=== PATIENT | female | born 1955 | race Caucasian/White ===

== ENCOUNTER 2017-07-21 17:45 | Emergency (ER) | payer OTHER ==
[~2017-07-21] VITALS: Ht 152.4 cm; Wt 90.7 kg
[~2017-07-21 17:45] MED LIST: FURO-151 PO; LACT10SO7 PO; LEVO125T PO; LEVO125T8 PO; MULT-585 PO; OMEP20CA10 PO; SPIR50TA3 PO; THIA100T68 PO
[2017-07-21] MEDS ORDERED: LEVO100T10 PO (18:16)
[2017-07-21] MEDS ORDERED: LISI10TA5 PO (18:16)
[2017-07-21] MEDS ORDERED: HYDROMORPHONE 1 MG/1 ML DISP.SYRIN IM ONE (18:45)
[2017-07-21] MEDS ORDERED: ONDANSETRON 4 MG/2 ML VIAL IM ONE (18:45)
[2017-07-21] MEDS ORDERED: ONDANSETRON 4 MG/2 ML VIAL ONE (19:06)
[2017-07-21] MEDS ORDERED: HYDROMORPHONE 2 MG/1 ML DISP.SYRIN ONE (19:06)
--- NOTE | 2017-07-21 20:12 | NUR ---
Patient discharged to home in stable conditon. Written and verbal after care instructions given. Patient verbalizes understanding of instructions.
== END 2017-07-21 20:13 | disposition home or self-care (01) ==
LOC: ER 17:46
DX: S32.009A Unspecified fracture of unspecified lumbar vertebra, initial encounter for closed fracture (principal); Z88.0 Allergy status to penicillin; I25.10 Atherosclerotic heart disease of native coronary artery without angina pectoris; I25.2 Old myocardial infarction; M19.90 Unspecified osteoarthritis, unspecified site; X58.XXXA Exposure to other specified factors, initial encounter; Y93.89 Activity, other specified; Y92.89 Other specified places as the place of occurrence of the external cause; Y99.8 Other external cause status
CPT/HCPCS: 72100; 72202; 96372 ×2; 99284; A4663; J1170; J2405

== ENCOUNTER 2017-08-20 12:25 | Emergency (ER) | payer OTHER ==
[~2017-08-20] VITALS: Ht 160 cm; Wt 72.6 kg
[~2017-08-20 12:25] MED LIST changes: -LACT10SO7 PO; +LEVO100T10 PO; -LEVO125T PO; -LEVO125T8 PO; +LISI10TA5 PO; -MULT-585 PO
[2017-08-20] MEDS ORDERED: PROMETHAZINE HCL 25 MG/1 ML VIAL IM ONE (12:45)
[2017-08-20] MEDS ORDERED: HYDROMORPHONE 1 MG/1 ML DISP.SYRIN IM ONE (12:45)
--- NOTE | 2017-08-20 13:07 | NUR ---
Patient discharged to home in stable conditon. Written and verbal after care instructions given. Patient verbalizes understanding of instructions.
[2017-08-20 13:08] VITALS: BP 122/83
[2017-08-20] MEDS ORDERED: HYDROMORPHONE 2 MG/1 ML DISP.SYRIN ONE (13:08)
[2017-08-20] MEDS ORDERED: PROMETHAZINE HCL 25 MG/1 ML VIAL ONE (13:08)
== END 2017-08-20 13:09 | disposition home or self-care (01) ==
LOC: ER 12:29
DX: M54.5 Low back pain (principal); I25.10 Atherosclerotic heart disease of native coronary artery without angina pectoris; B19.20 Unspecified viral hepatitis C without hepatic coma; Z90.49 Acquired absence of other specified parts of digestive tract; M19.90 Unspecified osteoarthritis, unspecified site; I25.2 Old myocardial infarction; Z88.0 Allergy status to penicillin
CPT/HCPCS: A4663; J1170; J2550

== ENCOUNTER 2017-09-23 15:06 | Emergency (ER) | payer OTHER ==
[~2017-09-23] VITALS: Ht 154.9 cm; Wt 74.8 kg
[2017-09-23] MEDS ORDERED: LISI10TA5 PO (15:35)
[2017-09-23] MEDS ORDERED: [UNRECOGNIZED DRUG - CODE] PO (15:35)
[2017-09-23] MEDS ORDERED: LEVO100T10 PO (15:35)
[2017-09-23] MEDS ORDERED: SPIR50TA3 PO (15:35)
[2017-09-23] MEDS ORDERED: FURO40TA5 PO (15:35)
[2017-09-23] MEDS ORDERED: OMEPRAZOLE PO (15:35)
--- NOTE | 2017-09-23 15:47 | NUR ---
PT.WAS SEEN BY .
--- NOTE | 2017-09-23 17:20 | NUR ---
Pt .back pain went from lewel 3 to 7-8 on scale [0-10],med.given.
[2017-09-23] MEDS ORDERED: diphenhydrAMINE 50 MG/1 ML VIAL ONE (17:41)
[2017-09-23] MEDS ORDERED: HYDROMORPHONE 2 MG/1 ML DISP.SYRIN ONE (17:41)
[2017-09-23] MEDS: HYDROMORPHONE 1 MG/1 ML DISP.SYRIN IM ONE (17:47)
[2017-09-23] MEDS: diphenhydrAMINE 50 MG/1 ML VIAL IM ONE (17:48)
--- NOTE | 2017-09-23 18:28 | NUR ---
Pt.denies any pain.
[2017-09-23 18:30] VITALS: BP 128/74
--- NOTE | 2017-09-23 18:40 | NUR ---
Pt.develop nause,vomited x1 small amount,Reglan 10 mg im given.
[2017-09-23] MEDS ORDERED: METOCLOPRAMIDE HCL 10 MG/2 ML VIAL ONE (18:43)
[2017-09-23] MEDS: METOCLOPRAMIDE HCL 10 MG/2 ML VIAL IM ONE (18:45)
--- NOTE | 2017-09-23 19:09 | NUR ---
Pt.staited florencio nausea gone,family at bedside,d/c instruction given.
== END 2017-09-23 19:15 | disposition home or self-care (01) ==
LOC: ER 15:08
DX: G89.29 Other chronic pain (principal); M54.5 Low back pain; I10 Essential (primary) hypertension; I25.10 Atherosclerotic heart disease of native coronary artery without angina pectoris; I25.2 Old myocardial infarction; Z88.0 Allergy status to penicillin; Z91.041 Radiographic dye allergy status; Z79.1 Long term (current) use of non-steroidal anti-inflammatories (NSAID)
CPT/HCPCS: A4663; J1170; J1200; J2765

== ENCOUNTER 2017-10-20 15:21 | Inpatient (IN) | payer OTHER ==
[~2017-10-20] VITALS: Ht 154.9 cm; Wt 73.1 kg
[~2017-10-20 15:21] MED LIST changes: +FURO40TA5 PO; +OMEPRAZOLE PO; +[UNRECOGNIZED DRUG - CODE] PO
[2017-10-20] MEDS ORDERED: IPRATROPIUM BROMIDE 0.5 MG/2.5 ML NEBU NEB ONE (15:45)
[2017-10-20] MEDS ORDERED: methylPREDNISolone SOD SUCC 125 MG/2 ML VIAL IV ONE (15:45)
[2017-10-20] MEDS ORDERED: IV NORMAL SALINE 1000 ML BAG IV ONE ×2 (15:45→17:00)
[2017-10-20] MEDS ORDERED: ALBUTEROL SULFATE 2.5 MG/3 ML NEBU NEB ONE (15:45)
[2017-10-20] MEDS ORDERED: ALBUTEROL SULFATE 2.5 MG/ 0.5 ML NEBU ONE (15:48)
[2017-10-20] MEDS ORDERED: IPRATROPIUM BROMIDE 0.5 MG/2.5 ML NEBU ONE (15:48)
[2017-10-20] MEDS ORDERED: methylPREDNISolone SOD SUCC 125 MG/2 ML VIAL ONE (15:51)
[2017-10-20 16:14] LABS: BASOPHILS % (AUTO) 0.6 % (0.0-2.0); EOSINOPHILS % (AUTO) 0.5 % (0.0-7.0); HEMATOCRIT 38.2 % (31.2-41.9); HEMOGLOBIN 13.2 g/dL (10.9-14.3); LYMPHOCYTES # (AUTO) 1.1 K/uL (20.0-40.0); LYMPHOCYTES % (AUTO) 14.7 % (20.5-51.5); MEAN CORPUSCULAR HEMOGLOBIN 32.8 uug (24.7-32.8); MEAN CORPUSCULAR HGB CONC 35 g/dL (32.3-35.6); MONOCYTES # (AUTO) 0.7 K/uL (2.0-10.0); MONOCYTES % (AUTO) 9.4 % (0.0-11.0); NEUTROPHILS # (AUTO) 5.8 K/uL (1.8-8.9); NEUTROPHILS % (AUTO) 74.8 % (38.5-71.5); PLATELET COUNT (AUTO) 164 K/uL (179-408); RED BLOOD CELL COUNT(AUTO) 4.02 MIL/uL (3.63-4.92); WHITE BLOOD COUNT (AUTO) 7.8 K/uL (3.8-11.8)
[2017-10-20 16:14] LABS: ABG BASE EXCESS 0.9 mmol/L; ABG HCO3 23.9 mmol/L; ABG PCO2 33.5 mmHg (35.0-45.0); ABG PH 7.472 (7.350-7.450); ABG PO2 150.3 mmHg (75.0-100.0); ABG SITE LEFT BRACHIAL; ABG TOTAL HEMOGLOBIN 13.3 G/dL (12.0-16.0); COHb 1.2 % (0.5-1.5); MetHb 0.2 % (0.0-1.5); VENT MODE Nasal Cannula
[2017-10-20 16:24] LABS: CREATININE 1.8 mg/dL (0.6-1.3)
[2017-10-20 16:36] LABS: POTASSIUM 2.8 mmol/L (3.5-5.1)
[2017-10-20 16:42] LABS: BILIRUBIN,DIRECT 0.3 mg/dL (0.0-0.2); BILIRUBIN,TOTAL 0.8 mg/dL (0.1-1.0); TOTAL PROTEIN, SERUM 6.5 g/dL (6.4-8.2)
[2017-10-20] MEDS ORDERED: ENOXAPARIN SODIUM 80 MG/0.8 ML DISP.SYRIN SQ ONE (17:00)
[2017-10-20] MEDS ORDERED: ENOXAPARIN SODIUM 40 MG/0.4 ML DISP.SYRIN SQ ONE (17:11)
[2017-10-20] MEDS ORDERED: ENOXAPARIN SODIUM 30 MG/0.3 ML DISP.SYRIN ONE (17:11)
[2017-10-20 20:32] VITALS: BP 133/67
[2017-10-20] MEDS ORDERED: POTASSIUM CHLORIDE 10 MEQ in IV D5/ 0.9% NACL 1,000 ML IV PRN (22:30)
[2017-10-20] MEDS ORDERED: LEVOFLOXACIN 500 MG/D5W 500 MG in PREMIXED 1 EACH IV SCH (22:30)
[2017-10-20] MEDS ORDERED: TEMAZEPAM 15 MG CAPSULE PO PRN (22:30)
[2017-10-20] MEDS: HYDROCODONE/APAP 5-325MG TABLET PO PRN (23:17)
[2017-10-21] VITALS: BP 137/78
[2017-10-21] MEDS ORDERED: LEVOFLOXACIN 500 MG/D5W 100 ML ONE (00:19)
[2017-10-21] MEDS: POTASSIUM CHLORIDE 20 MEQ in IV D5/ 0.9% NACL 1,000 ML IV PRN ×2 (00:24→12:11)
[2017-10-21] MEDS: IPRATROPIUM BROMIDE 0.5 MG/2.5 ML NEBU NEB PRN ×2 (02:13→17:08)
[2017-10-21] MEDS: ALBUTEROL SULFATE 2.5 MG/3 ML NEBU NEB PRN ×2 (02:13→17:08)
[2017-10-21 04:00] VITALS: BP 113/55
[2017-10-21] MEDS: HYDROCODONE/APAP 5-325MG TABLET PO PRN ×2 (04:55→11:21)
[2017-10-21 06:28] LABS: BASOPHILS % (AUTO) 0.1 % (0.0-2.0); LYMPHOCYTES # (AUTO) 0.5 K/uL (20.0-40.0); LYMPHOCYTES % (AUTO) 17.3 % (20.5-51.5); MEAN CORPUSCULAR HEMOGLOBIN 32.9 uug (24.7-32.8); MEAN CORPUSCULAR HGB CONC 35 g/dL (32.3-35.6); MEAN CORPUSCULAR VOLUME 94.7 fL (75.5-95.3); MONOCYTES # (AUTO) 0.1 K/uL (2.0-10.0); MONOCYTES % (AUTO) 3.4 % (0.0-11.0); NEUTROPHILS # (AUTO) 2.3 K/uL (1.8-8.9); NEUTROPHILS % (AUTO) 79.2 % (38.5-71.5); PLATELET COUNT (AUTO) 124 K/uL (179-408); RED BLOOD CELL COUNT(AUTO) 3.38 MIL/uL (3.63-4.92)
[2017-10-21 06:51] LABS: HEMOGLOBIN 11.1 g/dL (10.9-14.3); WHITE BLOOD COUNT (AUTO) 2.9 K/uL (3.8-11.8)
[2017-10-21 06:58] LABS: CREATININE 1.2 mg/dL (0.6-1.3); MAGNESIUM 1.3 mg/dL (1.8-2.4); PHOSPHOROUS 2.2 mg/dL (2.5-4.9)
[2017-10-21 07:12] LABS: THYROID STIMULATING HORMONE 0.061 mIU/mL (0.358-3.740)
[2017-10-21] MEDS ORDERED: MISCELLANEOUS MED XX PRN ×2 (07:15)
[2017-10-21] MEDS: LEVOTHYROXINE SODIUM 100 MCG TABLET PO SCH (07:59)
[2017-10-21] MEDS: PANTOPRAZOLE SODIUM 40 MG TABLET.DR PO SCH (07:59)
[2017-10-21] MEDS: THIAMINE HCL 100 MG TABLET PO SCH (08:03)
[2017-10-21] MEDS: FUROSEMIDE 40 MG TABLET PO SCH (08:03)
[2017-10-21] MEDS: methylPREDNISolone SOD SUCC 125 MG/2 ML VIAL IV SCH ×2 (08:04→20:29)
[2017-10-21 08:17] LABS: BAND % (MANUAL) 3 % (0-10); LYMPHOCYTES % (MANUAL) 20 % (20-40); MONOCYTES % (MANUAL) 3 % (2-10); NEUTROPHILS % (MANUAL) 74 % (42-75)
[2017-10-21] MEDS: SPIRONOLACTONE 50 MG TABLET PO SCH (09:07)
[2017-10-21] MEDS: LISINOPRIL 10 MG TABLET PO SCH (09:07)
[2017-10-21 11:28] VITALS: BP 127/59
[2017-10-21] MEDS ORDERED: HYDR-3980 PO (13:25)
[2017-10-21] MEDS ORDERED: TRAM50TA2 PO (13:27)
[2017-10-21] MEDS ORDERED: CHOL10002 PO (13:28)
[2017-10-21] MEDS: MAGNESIUM SULFATE/D5W 100 ML IV SCH ×2 (13:33→14:52)
[2017-10-21 15:28] VITALS: BP 120/61
[2017-10-21] MEDS: POTASSIUM PHOSPHATE MM 5 MMOL in IV DEXTROSE 5% 100 ML IV SCH ×4 (15:55→22:24)
[2017-10-21] MEDS ORDERED: ALPRAZOLAM 0.25 MG TABLET PO PRN (19:15)
[2017-10-21] MEDS ORDERED: ZOLPIDEM 5 MG TABLET PO PRN (19:15)
[2017-10-21 20:00] VITALS: BP 123/63
[2017-10-21] MEDS: ALPRAZOLAM 0.25 MG TABLET PO PRN (21:01)
[2017-10-21] MEDS: LEVOFLOXACIN 250MG /D5W 50 ML IV SCH (23:31)
[2017-10-22] VITALS: BP 145/79
[2017-10-22] MEDS: IPRATROPIUM BROMIDE 0.5 MG/2.5 ML NEBU NEB PRN ×5 (02:13→19:27)
[2017-10-22] MEDS: ALBUTEROL SULFATE 2.5 MG/3 ML NEBU NEB PRN ×5 (02:13→19:27)
[2017-10-22] MEDS: ALPRAZOLAM 0.25 MG TABLET PO PRN ×4 (02:49→21:32)
[2017-10-22 04:35] VITALS: BP 138/77
[2017-10-22] MEDS: PANTOPRAZOLE SODIUM 40 MG TABLET.DR PO SCH (06:22)
[2017-10-22] MEDS: LEVOTHYROXINE SODIUM 100 MCG TABLET PO SCH (06:22)
[2017-10-22 07:11] LABS: BASOPHILS % (AUTO) 0.1 % (0.0-2.0); HEMATOCRIT 32.3 % (31.2-41.9); HEMOGLOBIN 11.3 g/dL (10.9-14.3); LYMPHOCYTES # (AUTO) 0.5 K/uL (20.0-40.0); LYMPHOCYTES % (AUTO) 6.1 % (20.5-51.5); MEAN CORPUSCULAR HEMOGLOBIN 33.3 uug (24.7-32.8); MEAN CORPUSCULAR HGB CONC 35 g/dL (32.3-35.6); MEAN CORPUSCULAR VOLUME 95.3 fL (75.5-95.3); MONOCYTES # (AUTO) 0.3 K/uL (2.0-10.0); MONOCYTES % (AUTO) 3.8 % (0.0-11.0); NEUTROPHILS # (AUTO) 7.5 K/uL (1.8-8.9); PLATELET COUNT (AUTO) 139 K/uL (179-408); RED BLOOD CELL COUNT(AUTO) 3.39 MIL/uL (3.63-4.92)
[2017-10-22 07:26] LABS: WHITE BLOOD COUNT (AUTO) 8.3 K/uL (3.8-11.8)
[2017-10-22 07:40] LABS: BILIRUBIN,TOTAL 0.5 mg/dL (0.2-1.0); CREATININE 0.7 mg/dL (0.6-1.3); MAGNESIUM 1.7 mg/dL (1.8-2.4); PHOSPHOROUS 2.7 mg/dL (2.5-4.9); POTASSIUM 3.4 mmol/L (3.5-5.1); TOTAL PROTEIN, SERUM 5.3 g/dL (6.4-8.2)
[2017-10-22] MEDS: THIAMINE HCL 100 MG TABLET PO SCH (08:40)
[2017-10-22] MEDS: SPIRONOLACTONE 50 MG TABLET PO SCH (08:40)
[2017-10-22] MEDS: FUROSEMIDE 40 MG TABLET PO SCH (08:40)
[2017-10-22] MEDS: methylPREDNISolone SOD SUCC 125 MG/2 ML VIAL IV SCH (08:40)
[2017-10-22] MEDS: CHOLECALCIFEROL 1,000 UNIT TABLET PO SCH (08:40)
[2017-10-22] MEDS: LISINOPRIL 10 MG TABLET PO SCH (08:48)
[2017-10-22 11:06] VITALS: BP 135/71
[2017-10-22] MEDS ORDERED: MAGNESIUM OXIDE 400 MG TABLET PO ONE (14:45)
[2017-10-22 15:05] VITALS: BP 128/64
[2017-10-22] MEDS: POTASSIUM CHLORIDE 20 MEQ in IV D5/ 0.9% NACL 1,000 ML IV PRN (15:08)
[2017-10-22 20:00] VITALS: BP 122/69
[2017-10-22] MEDS ORDERED: methylPREDNISolone SOD SUCC 125 MG/2 ML VIAL IV SCH (21:00)
[2017-10-22] MEDS: methylPREDNISolone SOD SUCC 40 MG/ML VIAL IV SCH (21:32)
[2017-10-22] MEDS: LEVOFLOXACIN 250MG /D5W 50 ML IV SCH (23:16)
[2017-10-23] VITALS: BP 126/90
[2017-10-23] MEDS: ALPRAZOLAM 0.25 MG TABLET PO PRN ×3 (02:49→21:03)
[2017-10-23] MEDS: POTASSIUM CHLORIDE 20 MEQ in IV D5/ 0.9% NACL 1,000 ML IV PRN ×2 (03:14→18:57)
[2017-10-23 04:00] VITALS: BP 130/76
[2017-10-23] MEDS: LEVOTHYROXINE SODIUM 100 MCG TABLET PO SCH (06:21)
[2017-10-23] MEDS: PANTOPRAZOLE SODIUM 40 MG TABLET.DR PO SCH (06:21)
[2017-10-23 06:36] LABS: BASOPHILS % (AUTO) 0.1 % (0.0-2.0); HEMATOCRIT 31.3 % (31.2-41.9); LYMPHOCYTES # (AUTO) 0.5 K/uL (20.0-40.0); MEAN CORPUSCULAR HGB CONC 35 g/dL (32.3-35.6); MEAN CORPUSCULAR VOLUME 94.5 fL (75.5-95.3); MONOCYTES # (AUTO) 0.2 K/uL (2.0-10.0); MONOCYTES % (AUTO) 3.7 % (0.0-11.0); NEUTROPHILS # (AUTO) 5.8 K/uL (1.8-8.9); NEUTROPHILS % (AUTO) 88.2 % (38.5-71.5); PLATELET COUNT (AUTO) 145 K/uL (179-408); RED BLOOD CELL COUNT(AUTO) 3.32 MIL/uL (3.63-4.92); WHITE BLOOD COUNT (AUTO) 6.6 K/uL (3.8-11.8)
[2017-10-23 06:51] LABS: BILIRUBIN,TOTAL 0.5 mg/dL (0.2-1.0); CREATININE 0.7 mg/dL (0.6-1.3); MAGNESIUM 1.6 mg/dL (1.8-2.4); PHOSPHOROUS 2.5 mg/dL (2.5-4.9); POTASSIUM 4.1 mmol/L (3.5-5.1); TOTAL PROTEIN, SERUM 5.2 g/dL (6.4-8.2)
[2017-10-23] MEDS: IPRATROPIUM BROMIDE 0.5 MG/2.5 ML NEBU NEB PRN ×3 (08:28→14:31)
[2017-10-23] MEDS: ALBUTEROL SULFATE 2.5 MG/3 ML NEBU NEB PRN (08:28)
[2017-10-23] MEDS: FUROSEMIDE 40 MG TABLET PO SCH (08:49)
[2017-10-23] MEDS: CHOLECALCIFEROL 1,000 UNIT TABLET PO SCH (08:49)
[2017-10-23] MEDS: THIAMINE HCL 100 MG TABLET PO SCH (08:49)
[2017-10-23] MEDS: SPIRONOLACTONE 50 MG TABLET PO SCH (08:49)
[2017-10-23] MEDS: LISINOPRIL 10 MG TABLET PO SCH (08:50)
[2017-10-23] MEDS: methylPREDNISolone SOD SUCC 40 MG/ML VIAL IV SCH ×2 (08:50→21:03)
[2017-10-23] MEDS: ALBUTEROL SULFATE 2.5 MG/3 ML NEBU NEB SCH ×4 (11:15→23:21)
[2017-10-23 12:04] VITALS: BP 101/62
[2017-10-23] MEDS: MAGNESIUM SULFATE/D5W 100 ML IV SCH ×2 (13:03→14:14)
[2017-10-23 15:10] VITALS: BP 105/53
[2017-10-23] MEDS: HYDROCODONE/APAP 5-325MG TABLET PO PRN (17:10)
[2017-10-23 20:00] VITALS: BP 144/87
[2017-10-24] MEDS: LEVOFLOXACIN 250MG /D5W 50 ML IV SCH (00:17)
[2017-10-24] MEDS: ALBUTEROL SULFATE 2.5 MG/3 ML NEBU NEB SCH ×6 (02:53→22:57)
[2017-10-24] MEDS: HYDROCODONE/APAP 5-325MG TABLET PO PRN ×3 (04:27→20:05)
[2017-10-24 05:13] VITALS: BP 137/62
[2017-10-24] MEDS: IPRATROPIUM BROMIDE 0.5 MG/2.5 ML NEBU NEB PRN ×3 (05:22→19:14)
[2017-10-24] MEDS: ALBUTEROL SULFATE 2.5 MG/3 ML NEBU NEB PRN (05:22)
[2017-10-24] MEDS: LEVOTHYROXINE SODIUM 100 MCG TABLET PO SCH (06:04)
[2017-10-24] MEDS: PANTOPRAZOLE SODIUM 40 MG TABLET.DR PO SCH (06:04)
[2017-10-24 06:33] LABS: CREATININE 0.7 mg/dL (0.6-1.3); MAGNESIUM 1.8 mg/dL (1.8-2.4); POTASSIUM 4.6 mmol/L (3.5-5.1)
[2017-10-24] MEDS: THIAMINE HCL 100 MG TABLET PO SCH (08:45)
[2017-10-24] MEDS: FUROSEMIDE 40 MG TABLET PO SCH (08:45)
[2017-10-24] MEDS: CHOLECALCIFEROL 1,000 UNIT TABLET PO SCH (08:45)
[2017-10-24] MEDS: SPIRONOLACTONE 50 MG TABLET PO SCH (08:45)
[2017-10-24] MEDS: methylPREDNISolone SOD SUCC 40 MG/ML VIAL IV SCH ×2 (08:46→20:01)
[2017-10-24] MEDS: LISINOPRIL 10 MG TABLET PO SCH (08:49)
[2017-10-24] MEDS: ALPRAZOLAM 0.25 MG TABLET PO PRN ×3 (08:51→21:00)
[2017-10-24 09:00] VITALS: BP 138/79
[2017-10-24] MEDS: POTASSIUM CHLORIDE 20 MEQ in IV D5/ 0.9% NACL 1,000 ML IV PRN ×2 (10:50→21:00)
[2017-10-24 11:38] VITALS: BP 132/70
[2017-10-24 16:08] VITALS: BP 120/74
[2017-10-24] MEDS: LEVOFLOXACIN 250 MG TABLET PO SCH (20:01)
[2017-10-24 20:32] VITALS: BP 138/68
[2017-10-25] MEDS: HYDROCODONE/APAP 5-325MG TABLET PO PRN ×5 (01:27→20:53)
[2017-10-25] MEDS: ALBUTEROL SULFATE 2.5 MG/3 ML NEBU NEB SCH ×6 (03:30→22:58)
[2017-10-25 04:00] VITALS: BP 134/83
[2017-10-25] MEDS: LEVOTHYROXINE SODIUM 100 MCG TABLET PO SCH (06:18)
[2017-10-25] MEDS: PANTOPRAZOLE SODIUM 40 MG TABLET.DR PO SCH (06:18)
[2017-10-25] MEDS: POTASSIUM CHLORIDE 20 MEQ in IV D5/ 0.9% NACL 1,000 ML IV PRN (07:28)
[2017-10-25] MEDS: CHOLECALCIFEROL 1,000 UNIT TABLET PO SCH (09:07)
[2017-10-25] MEDS: SPIRONOLACTONE 50 MG TABLET PO SCH (09:07)
[2017-10-25] MEDS: THIAMINE HCL 100 MG TABLET PO SCH (09:08)
[2017-10-25] MEDS: FUROSEMIDE 40 MG TABLET PO SCH (09:08)
[2017-10-25] MEDS: LISINOPRIL 10 MG TABLET PO SCH (09:12)
[2017-10-25] MEDS: methylPREDNISolone SOD SUCC 40 MG/ML VIAL IV SCH (09:17)
[2017-10-25 11:40] VITALS: BP 145/81
[2017-10-25] MEDS: ALPRAZOLAM 0.25 MG TABLET PO PRN ×2 (13:47→22:25)
[2017-10-25 14:10] LABS: CREATININE 0.7 mg/dL (0.6-1.3); MAGNESIUM 1.6 mg/dL (1.8-2.4); PHOSPHOROUS 2.6 mg/dL (2.5-4.9); POTASSIUM 4.9 mmol/L (3.5-5.1)
[2017-10-25 15:41] VITALS: BP 129/75
[2017-10-25] MEDS: IPRATROPIUM BROMIDE 0.5 MG/2.5 ML NEBU NEB PRN (18:26)
[2017-10-25] MEDS: LEVOFLOXACIN 250 MG TABLET PO SCH (19:59)
[2017-10-25 20:13] VITALS: BP 120/68
[2017-10-26] MEDS: HYDROCODONE/APAP 5-325MG TABLET PO PRN ×3 (01:32→17:51)
[2017-10-26] MEDS: ALBUTEROL SULFATE 2.5 MG/3 ML NEBU NEB SCH ×4 (02:32→14:23)
[2017-10-26 05:52] VITALS: BP 154/84
[2017-10-26] MEDS: LEVOTHYROXINE SODIUM 100 MCG TABLET PO SCH (06:09)
[2017-10-26] MEDS: PANTOPRAZOLE SODIUM 40 MG TABLET.DR PO SCH (06:09)
[2017-10-26] MEDS: IPRATROPIUM BROMIDE 0.5 MG/2.5 ML NEBU NEB PRN (07:16)
[2017-10-26] MEDS: ALPRAZOLAM 0.25 MG TABLET PO PRN ×2 (08:19→14:07)
[2017-10-26] MEDS: FUROSEMIDE 40 MG TABLET PO SCH (08:19)
[2017-10-26] MEDS: CHOLECALCIFEROL 1,000 UNIT TABLET PO SCH (08:19)
[2017-10-26] MEDS: THIAMINE HCL 100 MG TABLET PO SCH (08:19)
[2017-10-26] MEDS: SPIRONOLACTONE 50 MG TABLET PO SCH (08:20)
[2017-10-26] MEDS: LISINOPRIL 10 MG TABLET PO SCH (08:20)
[2017-10-26] MEDS ORDERED: METH4TAB3 PO (10:43)
[2017-10-26 11:07] VITALS: BP 111/0
[2017-10-26 11:30] VITALS: BP 111/70
[2017-10-26] MEDS ORDERED: MAGNESIUM OXIDE 400 MG TABLET PO ONE (13:15)
[2017-10-26 15:04] VITALS: BP 105/58
== END 2017-10-26 18:30 | disposition home or self-care (01) | DRG 469 ==
LOC: ER 15:23 → TELE 18:49 → MED 10-23 16:22
PROVIDERS: ADMIT Internal Medicine; ATTEND Internal Medicine
DX: N17.0 Acute kidney failure with tubular necrosis (principal); E22.2 Syndrome of inappropriate secretion of antidiuretic hormone; J44.0 Chronic obstructive pulmonary disease with (acute) lower respiratory infection; K74.60 Unspecified cirrhosis of liver; E87.1 Hypo-osmolality and hyponatremia; I25.2 Old myocardial infarction; J20.9 Acute bronchitis, unspecified; J44.1 Chronic obstructive pulmonary disease with (acute) exacerbation; I25.10 Atherosclerotic heart disease of native coronary artery without angina pectoris; Z88.0 Allergy status to penicillin; B19.20 Unspecified viral hepatitis C without hepatic coma; F41.9 Anxiety disorder, unspecified; M25.532 Pain in left wrist; S62.102S Fracture of unspecified carpal bone, left wrist, sequela; X58.XXXS Exposure to other specified factors, sequela; G89.4 Chronic pain syndrome; E86.0 Dehydration; Z87.891 Personal history of nicotine dependence; I10 Essential (primary) hypertension
CPT/HCPCS: 36415; 36600; 70030-TC; 71045; 76770; 83605; 83735; 84100; 84443; 85025; 87040; 87400; 93005; 94640; 94664; 97110; 97116; 97530; A4663; J1650; J1956; J2920; J2930; J3475; J3480; J3490; J3590; J7030; J7042; J7060